=== PATIENT | female | born 1940 | race Caucasian/White ===

== ENCOUNTER 2018-03-19 12:30 | Inpatient (IN) | payer OTHER ==
[~2018-03-19] VITALS: Ht 152.4 cm; Wt 59.0 kg
[2018-04-04] MEDS ORDERED: DOCUSATE SODIU100 MG PO (15:16)
[2018-04-04] MEDS ORDERED: GABAPENTIN800 MG PO (15:16)
[2018-04-04] MEDS ORDERED: AMOX-CLAV 875-1 EACH PO (15:17)
[2018-04-04] MEDS ORDERED: PERCOCET 5-3251 EACH PO (15:18)
[2018-04-04] MEDS ORDERED: CLONAZEPAM1 MG PO (15:18)
== END 2018-04-05 13:51 | disposition home or self-care (01) | DRG 460 ==
LOC: O/R 04-04 04:50 → SURH 04-04 12:30 → SURG 04-04 15:36 → SURH 04-04 16:45 → SURG 04-05 13:51
PROVIDERS: Orthopaedic Surgery Orthopaedic Surgery of the Spine
PROC: 0SG00AJ Fusion of Lumbar Vertebral Joint with Interbody Fusion Device, Posterior Approach, Anterior Column, Open Approach (ICD-10-PCS; 2018-04-04)
PROC: 0ST20ZZ Resection of Lumbar Vertebral Disc, Open Approach (ICD-10-PCS; 2018-04-04)
PROC: 07DS3ZZ Extraction of Vertebral Bone Marrow, Percutaneous Approach (ICD-10-PCS; 2018-04-04)
PROC: 0SG00A0 Fusion of Lumbar Vertebral Joint with Interbody Fusion Device, Anterior Approach, Anterior Column, Open Approach (ICD-10-PCS; principal; 2018-04-04 16:45)
DX: M48.061 Spinal stenosis, lumbar region without neurogenic claudication (principal); M43.16 Spondylolisthesis, lumbar region; I10 Essential (primary) hypertension